=== PATIENT | female | born 1965 | race Caucasian/White ===

== ENCOUNTER 2021-09-25 19:26 | Inpatient (IN) | payer BC ==
[~2021-09-25] VITALS: Ht 166.4 cm; Wt 56.5 kg
[2021-09-25 19:26] VITALS: BP_SYST 73
[~2021-09-25 19:26] MED LIST: DEXTROSE 50% JECT 50 ML DISP.SYRIN ONE
--- NOTE | 2021-09-25 19:26 | NUR ---
Pt to bed 1 for evaluation.
--- NOTE | 2021-09-25 19:26 | NUR ---
blood sugar checked at 30. D50 given IVP through port-a-cath. Order given by MD Padron.
--- NOTE | 2021-09-25 19:31 | NUR ---
Dr. Padron at bedside for evaluation.
--- NOTE | 2021-09-25 19:34 | NUR ---
blood sugar re-checked at stated at 199. md berry made aware. BP 73/46. new orders given.
[2021-09-25] MEDS ORDERED: DEXTROSE 50% JECT 50 ML DISP.SYRIN IVP ONE (19:45)
[2021-09-25] MEDS ORDERED: NACL 0.9% 1,000 ML IV ONE ×2 (19:45→21:45)
--- NOTE | 2021-09-25 20:05 | NUR ---
Patient transported to CT radiology via GURNEY , accompanied by CODIFIER.
[2021-09-25 20:22] LABS: HEMATOCRIT 22.1 % (36-48); HEMOGLOBIN 7.6 g/dL (12.0-16.0); MEAN CORPUSCULAR HEMOGLOBIN 31 pg (27-31); MEAN CORPUSCULAR HGB CONC 34 % (32-36); MEAN CORPUSCULAR VOLUME 90 fL (79.0-98.0); PLATELET COUNT (AUTO) 57 K/uL (130-430); RED BLOOD CELL COUNT(AUTO) 2.46 MIL/uL (4.2-6.2); RED CELL DISTRIBUTION WIDTH 17.2 % (9.0-15.0)
[2021-09-25 20:30] LABS: ANION GAP 13 (5-15); CHLORIDE 88 mmol/L (98-107); CREATININE 1.26 mg/dL (0.55-1.30); GLUCOSE 133 mg/dL (70-99); SODIUM SERUM 120 mmol/L (136-145); UREA NITROGEN, BLOOD 32 mg/dL (8-21); WHITE BLOOD COUNT (AUTO) 1.1 K/uL (4.8-10.8)
[2021-09-25 20:40] LABS: BAND % (MANUAL) 12 % (0-6); BASOPHILS % (MANUAL) 0 % (0-2); EOSINOPHILS % (MANUAL) 0 % (0-7); LYMPHOCYTES % (MANUAL) 14 % (20-46); MONOCYTES % (MANUAL) 5 % (0-11)
[2021-09-25] MEDS ORDERED: HYDROmorphone 1 MG/ML INJ. CARTRIDGE IVP ONE (20:45)
[2021-09-25] MEDS ORDERED: NOREPINEPHRINE 4 MG/4 ML VIAL IV ONE ×2 (20:50→23:42)
[2021-09-25 20:52] LABS: ACETONE, SERUM NEGATIVE (NEGATIVE); ALANINE AMINOTRANSFERASE 31 U/L (12-78); ALBUMIN 0.9 g/dL (3.4-4.8); TOTAL BILIRUBIN 1.5 mg/dL (0.0-1.0)
[2021-09-25] MEDS ORDERED: NOREPINEPHRINE BITARTRATE 4 MG in NS 246 ML IV ONE (21:00)
--- NOTE | 2021-09-25 21:05 | NUR ---
PT BP 63/49 HR 99. LEVOPHED 0.1 MCG/KG/MIN INITIATED. STARTED TO RIGHT UPPER ANGEL-CATH.
--- NOTE | 2021-09-25 21:12 | NUR ---
LEVOPHED TITRATED TO 0.4 MCG. NEW BP 83/45 HR 104. PT TOLERATED WELL. PT REPOSITIONED FOR COMFORT.
[2021-09-25 21:19] LABS: CALCIUM 6.1 mg/dL (8.4-11.0); POTASSIUM 2.6 mmol/L (3.5-5.1)
[2021-09-25 21:20] LABS: ASPARTATE AMINOTRANSFERASE 32 U/L (10-37)
[2021-09-25] MEDS ORDERED: KCL 20 mEq in 100 mL (PREMIX) 100 ML IV ONE (21:45)
[2021-09-25] MEDS ORDERED: VANCOMYCIN HCL 1,000 MG in NS 250 ML IV ONE ×2 (21:45→23:30)
[2021-09-25] MEDS ORDERED: PIPERACILLIN/TAZO 3.375 GM in NS 50 ML IV ONE (21:45)
--- NOTE | 2021-09-25 21:50 | NUR ---
Patient will be admitted to care of [facility]. Admitted to ICU unit. BED REQUESTED AND PENDING ASSIGNMENT. Belongings list completed. Complete and up to date summary report printed. SBAR report to be given at bedside with opportunity for questions.
--- NOTE | 2021-09-25 22:00 | NUR ---
# 22 gauge angiocath placed to RIGHT FA. Use of asceptic technique. Opsite placed over site. Blood return noted. Blood for lab drawn from site. Flushed with 10 cc of normal saline. No evidence of infiltration noted. Patient tolerated well.
--- NOTE | 2021-09-25 22:04 | NUR ---
LEVOPHED TITRATED TO 0.7 MCG/KG/MIN D/T BP 79/62 HR 109.
[2021-09-25] MEDS ORDERED: PIPERACILLIN/TAZOBACTAM 3.375 GM/VIAL (ZOSYN) IV ONE (22:05)
[2021-09-25] MEDS ORDERED: MAGNESIUM SULFATE 50 ML IV PRN (22:15)
[2021-09-25] MEDS ORDERED: ONDANSETRON HCL 4 MG/2 ML VIAL IVP PRN (22:15)
[2021-09-25] MEDS ORDERED: POTASSIUM CHLORIDE 20 MEQ TAB.PRT.SR PO PRN (22:15)
[2021-09-25] MEDS ORDERED: DOCUSATE SODIUM 100 MG CAPSULE PO PRN (22:15)
[2021-09-25] MEDS ORDERED: MORPHINE 2 MG/ML INJ. SYRINGE IVP PRN (22:15)
[2021-09-25] MEDS ORDERED: MUPIROCIN 2% TOPICAL OINTMENT 22 GM NS PRN (22:15)
[2021-09-25] MEDS ORDERED: NACL 0.9% 1,000 ML IV SCH (22:15)
[2021-09-25] MEDS ORDERED: ZOLPIDEM TARTRATE 5 MG TABLET PO PRN (22:15)
[2021-09-25] MEDS ORDERED: ACETAMINOPHEN 325 MG TABLET PO PRN (22:15)
[2021-09-25] MEDS ORDERED: LORazepam 2 MG/ML VIAL IVP PRN (22:15)
[2021-09-25] MEDS ORDERED: INSULIN LISPRO SLIDING SCALE 100 UNITS/ML VIAL (humaLOG) SUBCUT PRN (22:15)
[2021-09-25] MEDS: PIPERACILLIN/TAZO 3.375 GM in NS 50 ML IV SCH (22:30)
--- NOTE | 2021-09-25 22:37 | NUR ---
COVID AND MRSA SWAB COLLECTED AND SENT
[2021-09-25] MEDS ORDERED: VANCOMYCIN HCL 1000 MG/VIAL IV ONE (23:12)
--- NOTE | 2021-09-25 23:40 | NUR ---
BLOOD GLUCOSE IS 35. GLUCOSE PROTOCOL IN PLACE. GIVEN D50 IVP.
[2021-09-25] MEDS: DEXTROSE 50% JECT 50 ML DISP.SYRIN IVP PRN (23:53)
[2021-09-26] VITALS (7 sets, daily range): BP systolic 0–138
--- NOTE | 2021-09-26 00:02 | NUR ---
Patient's code status is DNR paperwork completed and placed in chart.
--- NOTE | 2021-09-26 00:20 | NUR ---
ER ADMISSION Pt received from ER via gurnery accompied by ER staff and S.O. Pt lethargic verbal, weak. Cold multiple blankets present. Right chest with [place] Cath dressing intact no redness present. IVF infusing. Right wrist 22ga angiocath started by ER staff, patent no redness or swelling noted @ site. IVF infusing. Pt placed in hospital gown. Pt admitted to ICU 4. Belongings sent home with S.O. Oscar comforter with pt.
[2021-09-26] MEDS ORDERED: NOREPINEPHRINE 4 MG/4 ML VIAL IV ONE ×5 (01:36→08:10)
[2021-09-26] MEDS: NOREPINEPHRINE BITARTRATE 4 MG in NS 246 ML IV PRN ×4 (01:44→06:32)
[2021-09-26] MEDS: MORPHINE 2 MG/ML INJ. SYRINGE IVP PRN ×2 (01:45→06:52)
[2021-09-26] MEDS ORDERED: PIPERACILLIN/TAZOBACTAM 3.375 GM/VIAL (ZOSYN) IV ONE (02:28)
[2021-09-26] MEDS: DEXTROSE 50% JECT 50 ML DISP.SYRIN IVP PRN ×2 (03:13→05:59)
--- NOTE | 2021-09-26 03:14 | NUR ---
BLOOD SUGAR BP not reading, Pt is mumbling and blood glucose finger stick checked (31mg/dl). PRN D50% given IV per MD orders.
--- NOTE | 2021-09-26 03:40 | NUR ---
DR NAM Chandler notified regarding Pt's blood sugar running low and Pt has not voided yet. Orders received. 1. D10 NS @120 ml/hr 2. Stop NS @ 120ml/hr 3. Straight cath X 1
[2021-09-26] MEDS ORDERED: NACL 0.9% 1,000 ML IV SCH (04:00)
--- NOTE | 2021-09-26 05:42 | NUR ---
CONSULTATION CALLED/PAGED NEPHRO DR. POWELL [phone] HYPONATREMIA SPOKE WITH CODIE
--- NOTE | 2021-09-26 05:49 | NUR ---
CONSULTATION PAGED/CALLED ID DR. HUMMEL [phone] SEPTIC SHOCK SPOKE TO CODIE
--- NOTE | 2021-09-26 05:50 | NUR ---
CONSULTATION CALLED/PAGED PULMO DR. GARCIA [phone] SEPTIC SHOCK SPOKE WITH ALYSHA
[2021-09-26] MEDS ORDERED: DEXTROSE 50% JECT 50 ML DISP.SYRIN ONE (05:57)
[2021-09-26] MEDS: PIPERACILLIN/TAZO 3.375 GM in NS 50 ML IV SCH (06:01)
--- NOTE | 2021-09-26 06:35 | NUR ---
MILLER CATH: # 16 FR Miller catheter with 10 cc bulb inserted with use of sterile technique. Bulb inflated with 10 cc sterile water. Immediate return of 600 cc dark philly urine noted. Bedside drainage bag placed below level of bladder. Pt tolerated procedure well.
--- NOTE | 2021-09-26 07:30 | NUR ---
Pt awake and oriented,makes her own decisions at this time. She has appointed her boyfrined Mike to make decisions if she is unable to. He is at the bedside. ST on monitor. Pt moaning in pain and asking for pain medication. Dr. Chandler here to see pt.
[2021-09-26] MEDS ORDERED: MORPHINE 2 MG/ML INJ. SYRINGE IVP PRN (07:45)
[2021-09-26] MEDS ORDERED: COMMUNICATION ORDER XX ONE (08:15)
[2021-09-26] MEDS ORDERED: MORPHINE 4 MG INJ. 4 MG/ML VIAL ONE (08:21)
[2021-09-26] MEDS ORDERED: MORPHINE 4 MG INJ. 4 MG/ML VIAL IVP PRN (08:30)
[2021-09-26] MEDS ORDERED: NOREPINEPHRINE BITARTRATE 16 MG in NS 234 ML IV PRN (08:30)
--- NOTE | 2021-09-26 08:47 | NUR ---
Pt states her pain is relieved with the higher dose of morphine. Family at bedside. ST on monitor. BP is difficult to obtain at times despite multiple attempts. Levophed infusing. Pt does not want any further vasopressors added if her BP drops further and levophed becomes maxed out.
[2021-09-26] MEDS ORDERED: SODIUM CHLORIDE IV SCH (09:00)
[2021-09-26] MEDS ORDERED: MICAFUNGIN SODIUM 100 MG in NS 100 ML IV SCH (09:00)
[2021-09-26] MEDS ORDERED: D10W IV SCH (09:00)
[2021-09-26 09:14] LABS: CREATININE 1.02 mg/dL (0.55-1.30); POTASSIUM 3.4 mmol/L (3.5-5.1)
[2021-09-26] MEDS ORDERED: HYDROmorphone 2 MG/ML VIAL IVP PRN (09:15)
[2021-09-26] MEDS ORDERED: MORPHINE SULFATE IN 0.9 % NACL 100 ML IV PRN (09:45)
[2021-09-26] MEDS ORDERED: NALOXONE HCL 0.4 MG/ML AMP (NARCAN) IVP PRN (09:45)
[2021-09-26 10:04] LABS: CALCIUM 6.2 mg/dL (8.4-11.0)
--- NOTE | 2021-09-26 12:41 | NUR ---
Witnessed asystole on the monitor. Pt is a DNR with family at the bedside. Pt without a heartbeat, no pulse felt, no breath sounds heard, no rise and fall of the chest observed and both eyes fixed and dilated. Pt pronounced at this time.
--- NOTE | 2021-09-26 12:41 | NUR ---
NO HEARTBEATS OR PULSES DETECTED. NEFTALI, WINDOW GLASS INSTALLER, CONCURRED WITH MY ASSESSMENT. PATIENT WAS PRONOUNCED .
[2021-09-26] MEDS ORDERED: PIPERACILLIN/TAZOBACTAM 3.375 GM/ D5W 50 ML IV SCH ×2 (13:00)
[2021-09-26 15:24] LABS: HEMATOCRIT 25.7 % (36-48); HEMOGLOBIN 8.8 g/dL (12.0-16.0); MEAN CORPUSCULAR HEMOGLOBIN 31 pg (27-31); MEAN CORPUSCULAR HGB CONC 34 % (32-36); MEAN CORPUSCULAR VOLUME 91 fL (79.0-98.0); PLATELET COUNT (AUTO) 59 K/uL (130-430); RED BLOOD CELL COUNT(AUTO) 2.84 MIL/uL (4.2-6.2); RED CELL DISTRIBUTION WIDTH 17.5 % (9.0-15.0); WHITE BLOOD COUNT (AUTO) 1.4 K/uL (4.8-10.8)
[2021-09-26 15:25] LABS: BAND % (MANUAL) 20 % (0-6); BASOPHILS % (MANUAL) 0 % (0-2); EOSINOPHILS % (MANUAL) 0 % (0-7); LYMPHOCYTES % (MANUAL) 14 % (20-46); MONOCYTES % (MANUAL) 6 % (0-11)
--- NOTE | 2021-09-26 15:46 | NUR ---
Mortuary here to crop picker patient. Belongings, a comforter sent home with a friend.
[2021-09-26] MEDS ORDERED: VANCOMYCIN HCL 1,000 MG in NS 250 ML IV SCH (23:00)
[2021-09-26] MEDS ORDERED: VANCOMYCIN HCL 1,500 MG in NS 250 ML IV SCH (23:00)
== END 2021-09-26 12:41 | DRG 871 ==
LOC: SED 19:26 → SIC 21:49
PROVIDERS: ADMIT General Practice; ATTEND General Practice
DX: A41.9 Sepsis, unspecified organism (principal); E43 Unspecified severe protein-calorie malnutrition; R65.21 Severe sepsis with septic shock; C56.9 Malignant neoplasm of unspecified ovary; E87.1 Hypo-osmolality and hyponatremia; D61.818 Other pancytopenia; Z66 Do not resuscitate; E87.6 Hypokalemia; R56.9 Unspecified convulsions; E86.0 Dehydration; E83.51 Hypocalcemia; Z20.822 Contact with and (suspected) exposure to COVID-19; D69.6 Thrombocytopenia, unspecified; E16.2 Hypoglycemia, unspecified; Z85.43 Personal history of malignant neoplasm of ovary; Z90.710 Acquired absence of both cervix and uterus; Z68.20 Body mass index [BMI] 20.0-20.9, adult
CPT/HCPCS: 36415; 70450-TC; 71045; 76376; 80048; 80053; 82009; 82550; 82962; 83036; 83605; 83735; 84484; 84703; 85007; 85027; 87040-TC; 87081; 93005; 96361; 96365; 96366; 96375; 99291; J1170; J2248; J2270; J2543; J3370; J3480; J7050; J7060; J7131